=== PATIENT | male | born 1980 | race African-American/Black ===

== ENCOUNTER 2021-02-08 20:31 | Emergency (ER) | payer OTHER ==
[~2021-02-08] VITALS: Ht 177.8 cm; Wt 94.4 kg
[2021-02-08 20:40] VITALS: BP 155/88
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
[2021-02-08] MEDS ORDERED: IBUPROFEN 600 MG TABLET. PO ONE (21:00)
[2021-02-08] MEDS ORDERED: oxyCODONE/APAP 5/325 1 TAB TABLET PO ONE (21:00)
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
== END 2021-02-08 22:17 | disposition home or self-care (01) ==
LOC: ER 20:31
DX: S40.211A Abrasion of right shoulder, initial encounter (principal); R07.81 Pleurodynia; V86.59XA Driver of other special all-terrain or other off-road motor vehicle injured in nontraffic accident, initial encounter; Y93.89 Activity, other specified; Y92.89 Other specified places as the place of occurrence of the external cause; Y99.8 Other external cause status
CPT/HCPCS: 70490; 71250; 73130; 99285-25

== ENCOUNTER 2021-08-05 09:04 | Emergency (ER) | payer OTHER ==
[~2021-08-05] VITALS: Ht 177.8 cm; Wt 88.0 kg
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
[2021-08-05] MEDS ORDERED: PRED50TA PO (10:38)
[2021-08-05] MEDS ORDERED: predniSONE 10 MG TABLET. PO ONE (10:45)
[2021-08-05 10:46] VITALS: BP 159/109
== END 2021-08-05 10:47 | disposition home or self-care (01) ==
LOC: ER 09:04
DX: J06.9 Acute upper respiratory infection, unspecified (principal); J45.909 Unspecified asthma, uncomplicated; I10 Essential (primary) hypertension; Z20.822 Contact with and (suspected) exposure to COVID-19; Z88.0 Allergy status to penicillin
CPT/HCPCS: 71045; 99284; C9803; J7512; U0003